=== PATIENT | female | born 1960 | race Caucasian/White ===

== ENCOUNTER 2019-08-10 08:46 | Emergency (ER) | payer BC, SELFPAY ==
[2019-08-10 08:59] VITALS: BP 134/83; PULSE 81; RESP 16; TEMP 36.8; O2SAT 99
--- NOTE | 2019-08-10 09:02 | ED.GENADULT ---
HPI - General Adult General Chief complaint: Upper Respiratory Infection Stated complaint: sinus infection Time Seen by Provider: 08/10/19 09:02 Source: patient and RN notes reviewed Mode of arrival: ambulatory Limitations: no limitations History of Present Illness HPI narrative: 59-year-old female presents with complaints upper respiratory infection, chills, body aches, sneezing, some facial congestion, and facial pressure for the past 4 days. Mucus DM at night without relief. No facial swelling or SCOTT. Intermittent dry cough and intermittent productive cough (green phlegm). Green nasal congestion and rhinorrhea. Denies sore throat. Intermittent chills without high fevers, drooling, neck or throat swelling. No voice change. Complains of nausea without vomiting, or abdominal pain. Tolerating liquids well. Denies dyspnea, difficulty swallowing, jaw pain, dental pain, foreign body sensation, and rash. No chest pain or shortness of breath. Hysterectomy. The patient reports she have not been diagnosed with COVID-19. The patient reports she is not waiting for the results of a COVID-19 lab test. The patient reports she do not have fever, weakness, fatigue, myalgia, or facial swelling. The patient reports she do not have a worsening cough or shortness of breath. Denies chest pain. The patient reports she do not have any sore throat, vomiting, abdominal pain, and diarrhea. Tolerating po intake well. Denies recent traveling. 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 At this time, patient is not suspected of having COVID-19. Some parts of this dictation were generated by voice recognition software and may contain typographical and/or grammatical inaccuracies. Related Data Home Medications Medication Instructions Recorded Confirmed citalopram 10 mg PO DAILY 08/10/19 08/10/19 Allergies Allergy/AdvReac Type Severity Reaction Status Date / Time latex Allergy Unknown Unknown Verified 08/10/19 08:49 Penicillins Allergy Unknown Rash Verified 08/10/19 08:49 Review of Systems Review of Systems: Narrative: CONSTITUTIONAL: Denies fever, sweats. Complains of intermittent chills. EYES: Denies visual changes, redness, discharge. ENT: Complains of rhinorrhea, congestion, facial congestion and pressure. Denies otalgia, sore throat. CARDIOVASCULAR: Denies chest pain, palpitations, edema. RESPIRATORY: Denies dyspnea, wheezing. Complains of intermittent dry cough/intermittent productive cough. GASTROINTESTINAL: Denies abdominal pain, vomiting, diarrhea. Complains of nausea. GENITOURINARY: Denies dysuria, hematuria, abnormal discharge SKIN: Denies rash or itching. MUSCULOSKELETAL: Denies acute back pain, joint pain, or myalgia. NEUROLOGIC: Denies numbness or focal weakness. Complains of ibody aches. PSYCHIATRIC: Denies anxiety or depression. All other systems reviewed & are unremarkable except as noted in HPI and below. [facility] Past Medical History Medical History (Updated 08/10/19 @ 10:02 by HONEY [place]) Anxiety Hypertension Kidney stones Osteoarthritis of hands, bilateral Surgical History Surgical History (Updated 08/10/19 @ 11:29 by HONEY [place]) History of adenoidectomy History of cholecystectomy History of hysterectomy History of tonsillectomy Family History Family History Father Hypertension Family history of cardiovascular disease Mother Acute myocardial infarction Social History Social History (Updated 08/10/19 @ 10:05 by HONEY [place]) Smoking status: Former smoker Tobacco type: cigarettes Second hand tobacco smoke exposure: Yes Smoking end date: 03/09/79 Alcohol intake: current Substance use: never Living arrangements: with family Occupation/Education: occupation Gender identity (if ve
== END 2019-08-10 09:37 | disposition home or self-care (01) ==
PROVIDERS: Emergency Provider Nurse Practitioner Family; PCP Internal Medicine Geriatric Medicine
DX: J32.9 Chronic sinusitis, unspecified (principal); Z20.828 Contact with and (suspected) exposure to other viral communicable diseases; I10 Essential (primary) hypertension; Z87.442 Personal history of urinary calculi; M19.042 Primary osteoarthritis, left hand; M19.041 Primary osteoarthritis, right hand; Z87.891 Personal history of nicotine dependence
CPT/HCPCS: 99213; G0463

== ENCOUNTER 2020-01-30 09:26 | Emergency (ER) | payer BC, SELFPAY ==
--- NOTE | ~2020-01-30 | XR_ITS ---
EXAMINATION: XR chest 1V portable 01/30/2020 10:30 INDICATION: Shortness of breath and chest palpitations PROCEDURE: 2 view chest COMPARISON: No prior studies for comparison. FINDINGS: The lungs are clear. The cardiomediastinal silhouette is within normal limits. There are no pleural effusions. There is no pneumothorax suspected. IMPRESSION: 1: NO ACUTE CARDIOPULMONARY DISEASE. Reviewed, dictated and finalized at location A. [employer]
--- NOTE | 2020-01-30 09:35 | ECG_ITS ---
Measurements Intervals [place] Rate: 71 P: 49 NH: 144 QRS: -13 QRSD: 94 T: -1 QT: 395 QTc: 432 Interpretive Statements SINUS RHYTHM BORDERLINE T WAVE ABNORMALITY- INFERIOR LEADS BASELINE ARTIFACT- V4-V6 BORDERLINE ECG Electronically Signed On 01-30-2020 10:23:39 ASSISTANT PROFESSOR [employer]INAL JUSTICE by Jefferson Guaman D.O.
[2020-01-30 09:47] VITALS: BP 168/97; PULSE 77; RESP 13; TEMP 36.8; O2SAT 100
--- NOTE | 2020-01-30 10:00 | ED.GENADULT ---
HPI - General Adult General Chief complaint: Arrhythmia/Palpitations <TEDDY Beach Last Filed: 01/30/20 12:16> Stated complaint: Syncopal Episode, Muscles Hurt <TEDDY Beach Last Filed: 01/30/20 12:16> Time Seen by Provider: 01/30/20 09:31 <TEDDY Beach Last Filed: 01/30/20 12:16> Source: patient <TEDDY Beach Last Filed: 01/30/20 12:16> Mode of arrival: ambulatory <TEDDY Beach Last Filed: 01/30/20 12:16> Limitations: no limitations <TEDDY Beach Last Filed: 01/30/20 12:16> History of Present Illness HPI narrative: Patient is a 59-year-old female who presents per private vehicle after feeling dizzy while driving and noting a brief syncopal episode potentially patient notes that she has not felt well since October when she contracted COVID-19 patient notes that she has had intermittent nausea and vomiting intermittent dizziness and shortness of breath patient has been seen by primary care for this patient had a negative Covid test as recent as last week after having another potential exposure at work. Patient on arrival is in no distress does not appear uncomfortable has not taken anything for her symptoms <TEDDY Beach Last Filed: 01/30/20 12:16> Related Data Home medications: Home Medications Medication Instructions Recorded Confirmed citalopram 10 mg PO DAILY 08/10/19 08/10/19 <TEDDY Beach Last Filed: 01/30/20 12:16> Allergies/adverse reactions: Allergies Allergy/AdvReac Type Severity Reaction Status Date / Time latex Allergy Unknown Unknown Verified 01/30/20 09:50 Penicillins Allergy Unknown Rash Verified 01/30/20 09:50 <TEDDY Beach Last Filed: 01/30/20 12:16> Review of Systems Review of Systems: All systems reviewed & are unremarkable except as noted in HPI and below <TEDDY Beach Last Filed: 01/30/20 12:16> PMFSH Past Medical History Medical History: Medical History Anxiety Hypertension Kidney stones Osteoarthritis of hands, bilateral <Adam Garcia PA-C - Last Filed: 01/30/20 12:16> Surgical History Surgical History: Surgical History History of adenoidectomy History of cholecystectomy History of hysterectomy History of tonsillectomy <Adam Garcia PA-C - Last Filed: 01/30/20 12:16> Family History Family History: Family History Father Hypertension Family history of cardiovascular disease Mother Acute myocardial infarction <Adam Garcia PA-C - Last Filed: 01/30/20 12:16> Social History Social History: Social History Smoking status: Former smoker Tobacco type: cigarettes Second hand tobacco smoke exposure: Yes Smoking end date: 03/09/79 Alcohol intake: current Substance use: never Gender identity (if verbalized by the patient): Female <Adam Garcia PA-C - Last Filed: 01/30/20 12:16> Exam Narrative: Exam Narrative: GENERAL: Well-appearing, well-nourished, and in no acute distress. HEAD: Normocephalic, atraumatic. EYES: PERRLA and EOMI. ENT: Nares clear, no rhinorrhea or epistaxis. Mucous membranes moist. CHEST: Clear to auscultation. No respiratory distress. No wheezes rales or rhonchi HEART: Regular rate and rhythm. No murmur heard. Normal peripheral pulses. EXTREMITIES: Normal range of motion. No edema. SKIN: Warm, dry, no rash. NEURO: No focal deficits. Alert and oriented x3. PSYCH: Normal mood and affect. <Adam Garcia PA-C - Last Filed: 01/30/20 12:16> Course Course Emergency Course: Patient in the room in no distress resting comfortably afebrile nontoxic-appearing no distress felt appropriate for outpatient re
[2020-01-30 10:02] LABS: Add Urine Microscopic? NO; Appearance Urine Clear (Clear); Bilirubin Urine Negative (Negative); Blood Urine Negative (Negative); Color Urine Straw (Yellow); Glucose Urine UA Negative (Negative); Ketones Urine Negative (Negative); Leukocyte Esterase Ur Negative LEU/UL (Negative); Nitrate Urine Negative (Negative); Protein Urine Negative (Negative); Specific Grav Ur 1.008 (1.001-1.035); Urobilinogen Urine Negative mg/dL (<2.0)
[2020-01-30 10:03] LABS: Bacteria Urine Trace /hpf; RBC Urine 0-2 /hpf (0-2); Squamous Epithelial Cell Urine Moderate /hpf (Few); WBC Urine 0-3 /hpf
[2020-01-30] MEDS: ONDANSETRON INJ 4 MG/2 ML VIAL IV PUSH (10:07)
[2020-01-30] MEDS: SODIUM CHLORIDE 0.9% IV 1,000 ML 999 ML IV CONT (10:07)
[2020-01-30] MEDS: FAMOTIDINE 20 MG/2 ML VIAL IV PUSH (10:07)
[2020-01-30 10:09] LABS: Basophils Absolute Auto 0.1 K/mm3 (0.0-0.1); Basophils Percent Auto 0.5 % (0.2-1.2); Eosinophils Percent Auto 0.3 % (0-4.4); Hematocrit 44.7 % (37.0-47.0); Hemoglobin 15.3 g/dL (12.0-15.0); Immature Granulocyte Absolute 0.06 K/mm3 (0.00-0.031); Immature Granulocyte Percent A 0.6 % (0-0.5); Lymphocytes Absolute Auto 2.09 K/mm3 (0.9-3.2); Lymphocytes Percent Auto 20.9 % (18.3-44.2); Mean Corpuscular HGB Conc 34.2 g/dl (32-36); Mean Corpuscular Volume 90.5 fl (80-100); Monocytes Absolute Auto 0.5 K/mm3 (0.1-0.6); Monocytes Percent Auto 4.7 % (2.6-8.5); Neutrophils Absolute Auto 7.3 K/mm3 (1.3-6.7); Platelet Count Result 255 k/mm3 (150-375); Red Blood Count 4.94 M/mm3 (4.2-5.4); Red Cell Distribution Width 12.1 % (11.5-14.5)
[2020-01-30 10:19] LABS: INR 0.9; Prothrombin Time 12.2 Seconds (11.1-14.7)
[2020-01-30 10:20] LABS: Partial Thromboplastin Time 27.3 SECONDS (22.3-36.8)
[2020-01-30 10:23] LABS: Alanine Aminotransferase 49 U/L (4-35); Albumin Level 4.6 g/dL (3.5-5.1); Alkaline Phosphatase 74 U/L (38-126); Anion Gap 9 mmol/L (8-16); Aspartate Amino Transferase 34 U/L (14-36); Bilirubin,Total 0.3 mg/dL (0.2-1.3); Blood Urea Nitrogen 13 mg/dL (7-17); Calcium 9.9 mg/dL (8.4-10.2); Carbon Dioxide 28 mmol/L (22-30); Chloride 104 mmol/L (98-107); D Dimer 0.33 ug/mL (<0.48); Estimated Glomerular Filt Rate > 60; Glucose 115 mg/dL (65-105); Magnesium 1.9 mg/dL (1.6-2.3); Potassium 3.6 mmol/L (3.4-5.0); Sodium 141 mmol/L (137-145)
[2020-01-30 10:33] LABS: Troponin I < 0.012 ng/mL (0.000-0.034)
[2020-01-30 10:56] VITALS: BP 138/87; PULSE 87; RESP 15; O2SAT 98
[2020-01-30 12:21] VITALS: BP 136/84; PULSE 87; RESP 16; O2SAT 98
== END 2020-01-30 12:32 | disposition home or self-care (01) ==
PROVIDERS: Emergency Medicine Emergency Medical Services; Emergency Provider Emergency Medicine; PCP Internal Medicine Geriatric Medicine
DX: R55 Syncope and collapse (principal); F41.9 Anxiety disorder, unspecified; Z86.19 Personal history of other infectious and parasitic diseases; I10 Essential (primary) hypertension; Z87.442 Personal history of urinary calculi; M19.042 Primary osteoarthritis, left hand; M19.041 Primary osteoarthritis, right hand; Z87.891 Personal history of nicotine dependence; R94.31 Abnormal electrocardiogram [ECG] [EKG]
CPT/HCPCS: 36415; 71045; 80053; 81003; 83735; 84484; 85025; 85380; 85610; 85730; 93005; 96361; 96374; 96375; 99284; J2405; J7030